=== PATIENT | female | born 2005 | race Caucasian/White ===

== ENCOUNTER 2023-07-01 15:37 | Emergency (ER) | payer BC, SELFPAY ==
[2023-07-01 15:43] VITALS: BP 125/71; PULSE 74; RESP 18; TEMP 36.4; O2SAT 97; BMI 28.9
--- NOTE | 2023-07-01 17:10 | ED.GENADULT ---
HPI - General Adult General Chief complaint: Extremity Pain/Injury, Upper Stated complaint: Possible hand/wrist injury Time Seen by Provider: 07/01/23 16:46 Source: patient Mode of arrival: ambulatory Limitations: no limitations History of Present Illness HPI narrative: 17-year-old female presents the emergency department for evaluation of pain in the left wrist. This has been present for about 15 hours. She reports that she shot the wrist in a dresser drawer last night. Had no initial limitations but is now having some tenderness on the palmar aspect near the medial wrist and along the dorsal tendons that controlled the 2nd and 3rd fingers. There is no limitation of activity. No deformity. No bruising, no skin laceration. He has not tried taking any Tylenol or ibuprofen to help with her pain. No history of surgery prior fracture or severe injury to this area in the past. She has no numbness or tingling, no loss of sensation, no movement deficits. She is just wondering if the pain is normal and what to expect. She does not think that it is likely broken but is unsure. No other associated injuries. Past medical history she reports is benign. Her only home meds are for treatment for acne, control and for p.r.n. migraines. She does not smoke. ROS is negative for other musculoskeletal, skin, neurological or generalized complaints. Related Data Home Medications Medication Instructions Recorded Confirmed cephalexin 500 mg capsule 500 mg PO QDAY 11/26/22 07/01/23 clindamycin phosphate 1 % topical topical 11/26/22 11/26/22 swab sumatriptan 20 mg/actuation nasal 20 mg intranasal .As Needed PRN 11/26/22 07/01/23 spray Previous Rx's Medication Instructions Recorded etonogestrel 0.12 mg-ethinyl 1 vag ring vaginal Q4W #12 ea 11/26/22 estradiol 0.015 mg/24 hr vaginal ring (NuvaRing) Allergies Allergy/AdvReac Type Severity Reaction Status Date / Time No Known Drug Allergies Allergy Verified 07/01/23 15:47 [facility] Medical History History of migraine ?Z86.69 - Personal history of other diseases of the nervous system and sense organs (ICD-10) Contraceptive use ?Z30.40 - Encounter for surveillance of contraceptives, unspecified (ICD-10) Family History Grandfather High blood pressure Father Seizure disorder Other No family history of bleeding disorder Social History Narrative: [employer]. Currently in school at [employer] pursuing her [employer]. Nonsmoker. No alcohol use. No illicit drug use. No concerns with safety or abuse. Smoking Status: Never smoker Do you use any of these nicotine containing products: None Second hand tobacco smoke exposure: No How often do you have a drink containing alcohol: monthly or less AUDIT-C Alcohol total score: 1 Non-prescribed substance use: denies use Little interest or pleasure in doing things: not at all Feeling down, depressed, or hopeless: not at all service: No Exam Const: Vital Signs, click to edit/add: Vital Signs - 24 hr 07/01/23 15:43 Temperature 97.5 F L Pulse Rate [Pulse Oximeter] 74 Respiratory Rate 18 Blood Pressure [Ri ght Upper Arm] 125/71 Pulse Oximetry 97 Oxygen Delivery Me thod Room Air Documenting provider has reviewed patient's vital signs: yes Common normals: no apparent distress General appearance: cooperative, comfortable and well kempt Eye: General eye: normal appearance of both eyes Resp: Common normals: normal respiratory effort and no use of accessory muscles Effort & inspection: able to speak in complete sentences Cardio: Common normals: regular rate and regular rhythm Rate: regular rate Rhythm: regular rhythm Other: Regular radial pulses on left side, normal capillary refill in all fingers Extremity: Other: Left wrist with perfectly normal range of motion and strength. No deformity. Mild tenderness to palpation of the extensor tendons of the 2nd and 3rd fingers as well as the flexor carpi radialis tendons only. Normal strength, no movement deficit, normal sensation. No effusion. No bony tenderness. Neuro: Speech: speech normal Motor exam: no movement abnormalities noted Psych: Appearance: well kempt Attitude: engaged Activity/motor behavior: appropriate eye contact Insight: insight good Judgement: judgment good Skin: Common normals: no rashes or lesions noted General skin exam: no rashes or lesions noted Course Course Hospital Course: Reviewed findings with patient. Offered x-ray but stated that based on her findings, it is not necessary. She was agreeable to conservative management. I do not recommend a brace. Discussed that the tendons will be a little sore in may hurt more with movement. This should resolve on its own within the next few days. If it is still very bothersome in 2 weeks, she should have it re-evaluated. Counseled on ice, Tylenol, ibuprofen and alarm symptoms. She verbalizes understanding and agreement Vital Signs Vital signs: Initial Vital Signs Temperature 97.5 F L 07/01/23 15:43 Temperature Source Temporal Artery Scan 07/01/23 15:43 Pulse Rate 74 07/01/23 15:43 Respiratory Rate 18 07/01/23 15:43 Blood Pressure 125/71 07/01/23 15:43 Blood Pressure Mean 89 07/01/23 15:43 Blood Pressure Position Sitting 07/01/23 15:43 Pulse Oximetry 97 07/01/23 15:43 Oxygen Delivery Method Room Air 07/01/23 15:43 Vital Signs Temperature 97.5 F L 07/01/23 15:43 Pulse Rate 74 07/01/23 15:43 Respiratory Rate 18 07/01/23 15:43 Blood Pressure 125/71 07/01/23 15:43 Pulse Oximetry 97 07/01/23 15:43 Oxygen Delivery Method Room Air 07/01/23 15:43 Temperature 97.5 F L 07/01/23 15:43 Pulse Rate 74 07/01/23 15:43 Respiratory Rate 18 07/01/23 15:43 Blood Pressure 125/71 07/01/23 15:43 Pulse Oximetry 97 07/01/23 15:43 Oxygen Delivery Method Room Air 07/01/23 15:43 Discharge Plan Discharge Clinical Impression: Sprain and strain of wrist Patient Disposition: Home, Self-Care Condition: Stable Instructions: Wrist Sprain (ED) Additional Instructions: As we discussed, the tendons in your wrist were bruised from the injury. There is no sign of dysfunction of the nerves, arteries or other important structures. There are no signs of a fracture. I do not recommend an x-ray. The tenderness should improve within the next 2 weeks. It will not cause any long-term dysfunction. I would avoid heavy strain, heavy lifting for the next few days. It is okay to apply ice for 10 minutes at a time, up to 3 times daily. For pain, use ibuprofen 600 mg every 6 hours as needed, and or Tylenol 1000 mg every 6 hours as needed. If her pain is still very bothersome at the 2 week ritchie, I would recommend that you follow-up with her primary care doctor and have an x-ray performed. Activity Level: No Restrictions Discharge Diet: Regular Prescriptions: No Action cephalexin 500 mg capsule 500 mg PO QDAY clindamycin phosphate 1 % swab topical sumatriptan 20 mg/actuation spray,non-aerosol 20 mg intranasal .As Needed PRN Rx Instructions: ONE SPRAY IN ONE NOSTRIL AT ONSET OF HEADACHE, MAY REPEAT ONCE IN 2HRS PRN, MAX 2 SPRAYS/24 HR etonogestrel-ethinyl estradiol [NuvaRing] 0.12-0.015 mg/24 hr ring 1 vag ring vaginal Q4W Qty: 12 3RF Rx Instructions: Insert vaginally. Leave in place for 3 weeks, followed by one week of rest. At that time, insert new ring. Follow Up/Referrals: Provider,Not a Local [Referring] - Stand Alone Forms: [employer] Info Instructions
== END 2023-07-01 17:28 | disposition home or self-care (01) ==
LOC: ED 17:03
PROVIDERS: Emergency Provider Family Medicine; PCP Family Medicine
DX: S63.502A Unspecified sprain of left wrist, initial encounter (principal); W22.8XXA Striking against or struck by other objects, initial encounter
CPT/HCPCS: 99283

== ENCOUNTER 2024-06-12 15:12 | Outpatient (CLI) | payer BC, SELFPAY | END 2024-06-12 15:13 | disposition home or self-care (01) | LOC: NFLDREF 15:12 | PROVIDERS: PCP Family Medicine; Visit Provider Physician Assistant | DX: Z11.3 Encounter for screening for infections with a predominantly sexual mode of transmission (principal) | CPT/HCPCS: 87491; 87591 ==